=== PATIENT | female | born 1995 | race Caucasian/White ===

== ENCOUNTER 2023-03-23 11:36 | Outpatient (CLI) | payer OTHER ==
[2023-03-23 12:03] LABS: HGB - HEMOGLOBIN 13.2 g/dL (12.0-16.0); MEAN CORPUSCULAR HEMOGLOBIN 32.8 pg (27.0-31.0); MEAN CORPUSCULAR HGB CONC 33.8 g/dL (32.0-36.0); MEAN CORPUSCULAR VOLUME 96.8 fL (81.0-99.0); MEAN PLATELET VOLUME 10.4 fL (7.9-10.8); RED BLOOD COUNT 4.03 10^6/uL (4.20-5.40); RED CELL DISTRIBUTION WIDTH 11.9 % (12.0-15.0); WHITE BLOOD COUNT 4.6 x10^3/uL (4.8-10.8)
[2023-03-23 12:38] LABS: BILIRUBIN,URINE NEGATIVE (NEGATIVE); GLUCOSE, URINE (UA) NEGATIVE (NEGATIVE); KETONES,URINE (UA) NEGATIVE (NEGATIVE); LEUKOCYTE ESTERASE, URINE NEGATIVE (NEGATIVE); NITRITE,URINE NEGATIVE (NEGATIVE); OCCULT BLOOD,URINE NEGATIVE (NEGATIVE); PROTEIN,URINE NEGATIVE (NEGATIVE); UROBILINOGEN,URINE 0.2 (NORMAL) E.U./dL (NORMAL)
[2023-03-23 12:45] LABS: BACTERIA,URINE Rare /HPF (None Seen); CLARITY,URINE CLEAR (CLEAR); RBC,URINE None Seen /HPF (0-5); SQUAMOUS EPITHELIAL CELL,UR FEW Squamous (<= Few); WBC,URINE 0-3 /HPF (0-5)
--- NOTE | 2023-03-23 13:05 | Ultrasound Report ---
PROCEDURE: Pelvic w/Transvaginal INDICATIONS: PELVIC PX LT,HISTORY OF OVARIAN CYST TECHNIQUE: Real-time scanning was performed of the pelvic organs, with image documentation. Additional endovagi nal scanning was necessary due to incomplete visualization of the adnexal and endometrial structures by transabdominal scanning. COMPARISON: None. FINDINGS: Uterus: Uterus is anteverted and normal in size at 3.1 x 3.6 x 4.9 cm. The myometrium is homogeneou s. No discrete uterine fibroids. The endometrium measures 7.53 mm in combined thickness. There is n o endometrial mass or fluid. Ovaries: The right ovary measures 3.4 x 1.8 x 3.6 cm, with a calculated ovarian volume of 11.1 cc. The left ovary measures 3.9 x 2.2 x 1.9 cm, with a calculated ovarian volume of 8.4 cc. Dominant foll icle versus simple cyst is seen in left ovary measures 1.9 x 1.1 x 1.5 cm in size. Less than 12 folli cles can be seen in each ovary. No adnexal masses are seen. No cystic lesions measuring greater than 3 cm. Other: No pathologic free abdominal or pelvic fluid. IMPRESSION: 1. Normal appearing uterus and endometrium. 2. Less than 12 follicles are seen in each ovary. Dominant follicle versus simple cysts in left ovary measures 1.9 x 1.1 x 1.5 cm in size. No solid appearing ovarian lesion. Reviewed by: Minor Phillip MD on 03/23/2023 1:03 PM PDT Approved by: Minor Phillip MD on 03/23/2023 1:03 PM PDT Station ID: [id number]
== END 2023-03-23 11:37 | disposition home or self-care (01) ==
LOC: LAB 11:36
PROVIDERS: ATTEND Nurse Practitioner
DX: R10.2 Pelvic and perineal pain (principal); Z87.42 Personal history of other diseases of the female genital tract; Z32.00 Encounter for pregnancy test, result unknown
CPT/HCPCS: 36415; 81001; 84702; 85027; 86900; 86901; 87086

== ENCOUNTER 2023-09-28 14:17 | Outpatient (CLI) | payer BC ==
[2023-09-28 19:51] LABS: BASOPHILS % (AUTO) 0.4 %; EOSINOPHILS % (AUTO) 0.4 %; HCT - HEMATOCRIT 41.4 % (37.0-47.0); LYMPHOCYTES # (AUTO) 1.1 10^3/uL (1.5-3.5); LYMPHOCYTES % (AUTO) 20.9 %; MEAN CORPUSCULAR HGB CONC 33.8 g/dL (32.0-36.0); MEAN CORPUSCULAR VOLUME 94.5 fL (81.0-99.0); MEAN PLATELET VOLUME 9.9 fL (7.9-10.8); MONOCYTES # (AUTO) 0.5 10^3/uL (0.0-1.0); MONOCYTES % (AUTO) 8.5 %; NEUTROPHILS # (AUTO) 3.8 10^3/uL (1.5-6.6); NEUTROPHILS % (AUTO) 69.6 %; PLT - PLATELET COUNT 269 10^3/uL (130-450); RED BLOOD COUNT 4.38 10^6/uL (4.20-5.40); RED CELL DISTRIBUTION WIDTH 11.7 % (12.0-15.0); WHITE BLOOD COUNT 5.4 x10^3/uL (4.8-10.8)
[2023-09-28 20:16] LABS: ALBUMIN 4.9 g/dL (3.2-5.5); ALBUMIN/GLOBULIN RATIO 1.5 (1.0-2.2); BILIRUBIN,TOTAL 0.8 mg/dL (0.2-1.0); CALCIUM 9.9 mg/dL (8.5-10.3); CREATININE 0.6 mg/dL (0.6-1.3); POTASSIUM 3.8 mmol/L (3.5-4.5); TOTAL PROTEIN 8.2 g/dL (6.4-8.9)
== END 2023-09-28 14:18 | disposition home or self-care (01) ==
LOC: LAB.S 14:17
PROVIDERS: ATTEND Nurse Practitioner
DX: L93.2 Other local lupus erythematosus (principal); R21 Rash and other nonspecific skin eruption; Z79.899 Other long term (current) drug therapy
CPT/HCPCS: 36415; 80053; 85025

== ENCOUNTER 2024-05-02 12:47 | Outpatient (CLI) | payer BC ==
--- NOTE | 2024-05-02 18:19 | Ultrasound Report ---
PROCEDURE: Pelvic Limited INDICATIONS: LYMPHADENOPATHY TECHNIQUE: Real-time transabdominal scanning was performed of the pelvic organs, with image documentation. COMPARISON: None. FINDINGS: Sonographic images of the groin demonstrate multiple lymph nodes. They are not enlarged by pathologic size criteria. There is loss of fatty hilum in the 1.0 x 0.7 cm lymph node in the right groin demons trating mild increased vascularity. Remaining lymph nodes appear unremarkable. IMPRESSION: Right groin lymph node demonstrating poor visualization of fatty hilum. It is not enlarged by patholo gic size criteria. Finding is overall nonspecific and short interval follow-up is recommended. Reviewed by: Dang Soria MD on 05/02/2024 6:18 PM PDT Approved by: Dang Soria MD on 05/02/2024 6:18 PM PDT Station ID: [id number]
== END 2024-05-02 12:48 | disposition home or self-care (01) ==
LOC: DI 12:47
PROVIDERS: ATTEND Internal Medicine
DX: R59.1 Generalized enlarged lymph nodes (principal)

== ENCOUNTER 2024-06-21 13:04 | Outpatient (CLI) | payer BC ==
[2024-06-21 19:55] LABS: BASOPHILS % (AUTO) 0.3 %; EOSINOPHILS % (AUTO) 1.1 %; HCT - HEMATOCRIT 41.1 % (37.0-47.0); HGB - HEMOGLOBIN 13.3 g/dL (12.0-16.0); LYMPHOCYTES % (AUTO) 27.5 %; MEAN CORPUSCULAR HEMOGLOBIN 31.7 pg (27.0-31.0); MEAN CORPUSCULAR HGB CONC 32.4 g/dL (32.0-36.0); MEAN CORPUSCULAR VOLUME 98.1 fL (81.0-99.0); MEAN PLATELET VOLUME 10.6 fL (7.9-10.8); MONOCYTES # (AUTO) 0.4 10^3/uL (0.0-1.0); NEUTROPHILS # (AUTO) 2.2 10^3/uL (1.5-6.6); NEUTROPHILS % (AUTO) 61.1 %; PLT - PLATELET COUNT 241 10^3/uL (130-450); RED BLOOD COUNT 4.19 10^6/uL (4.20-5.40); RED CELL DISTRIBUTION WIDTH 13.2 % (12.0-15.0); WHITE BLOOD COUNT 3.6 x10^3/uL (4.8-10.8)
[2024-06-21 20:11] LABS: CRP - C-REACTIVE PROTEIN < 0.5 mg/dL (<0.5)
[2024-06-21 20:22] LABS: THYROID STIMULATING HORMONE 0.92 uIU/mL (0.34-5.60)
[2024-06-21 21:12] LABS: GLUCOSE 58 mg/dL (74-104)
[2024-06-21 21:17] LABS: ALBUMIN 4.6 g/dL (3.2-5.5); ALBUMIN/GLOBULIN RATIO 1.6 (1.0-2.2); ALKALINE PHOSPHATASE 92 IU/L (42-121); ALT ALANINE AMINOTRANSFERASE 15 IU/L (10-60); AST ASPARTATE AMINOTRANSFERASE 14 IU/L (10-42); BILIRUBIN,TOTAL 0.5 mg/dL (0.2-1.0); BUN - BLOOD UREA NITROGEN 12 mg/dL (6-20); CALCIUM 9.6 mg/dL (8.5-10.3); CARBON DIOXIDE - CO2 27 mmol/L (21-32); CHLORIDE 106 mmol/L (101-111); CREATININE 0.6 mg/dL (0.6-1.3); GFR - MDRD 119 (>89); POTASSIUM 3.9 mmol/L (3.5-4.5); SODIUM 138 mmol/L (135-145); TOTAL PROTEIN 7.4 g/dL (6.4-8.9)
== END 2024-06-21 13:05 | disposition home or self-care (01) ==
LOC: LAB.S 13:04
PROVIDERS: ATTEND Emergency Medicine
DX: R53.83 Other fatigue (principal)
CPT/HCPCS: 36415; 80053; 84443; 85025; 86038; 86140